=== PATIENT | male | born 1965 | race Caucasian/White ===

== ENCOUNTER 2017-02-03 05:42 | Inpatient (IN) | payer OTHER ==
--- NOTE | ~2017-02-03 | HP ---
History And Physical [place] [id number] [facility] [place]. [address] NAME: VLADISLAV HERNANDEZ JR : 67 STATUS : ADM IN [facility]#: [id number] AGE: 51 ADM/REG DATE : 02/03/17 MR#: [id number] REPORT SERV DATE: 02/03/17 DICTATED BY: GINGER MORSE DATE: 02/03/17 REPORT STATUS : Draft TRANSCRIBED BY: MODMelva DATE: 02/03/17 DATE OF ADMISSION: 02/03/2017 REASON FOR ADMISSION: Injection of oxycodone to his left hand. PRIMARY CARE DOCTOR: Unclear. HISTORY OF PRESENT ILLNESS: This is a 51-year-old male who has a known past medical history of a DVT, no longer the case. Only one episode of spontaneous pneumothorax as a child as well as having recent injection drug use, notably with heroin in the past one month for significant chronic pain, possibly in the low back as well as now recent use of injecting Roxicodone XR 30 mg a day. The patient denies any history of hypertension, hyperlipidemia, or diabetes. The patient apparently came in last night near 9 o'clock and injected in one of his veins of his left hand, superficial region as he still has a bounding radial pulse, Roxicodone that was liquified or attempted to be. As a result, the patient had increased swelling in his left hand. He has capillary refill about 3 seconds in his left digits. The patient denies any recent fevers or chills or nausea, vomiting, diarrhea, chest pain, chest pressure, or shortness of breath. The patient understands the risks of IV drug use including endocarditis was explained to he and his . The patient was seen by Vascular Surgery here, for which was noted pain all over, mottling, stated he had good proximal perfusion and flow. Ischemia appears to be more distal. Recommend calling hand surgeon, start IV heparin, pain control, and they signed off. REVIEW OF SYSTEMS: Done, see HPI. Otherwise, negative. PAST MEDICAL HISTORY: See above. PAST SURGICAL HISTORY: See above. ALLERGIES: NO KNOWN DRUG ALLERGIES. SOCIAL HISTORY: Smokes about two packs a day. Positive heroin IV drug use. Positive illicit use of Roxicodone. No alcohol use per the patient. FAMILY HISTORY: Early [place] in his father. HOME MEDICATIONS: See MAR. We will continue what is relevant. PHYSICAL EXAMINATION: VITAL SIGNS: He is currently 157 systolic from 169/100, pulse 72, respirations 16, and 99% on room air. History And Physical [address] [address] NAME: VLADISLAV HERNANDEZ JR : 67 STATUS : ADM IN [facility]#: [id number] AGE: 51 ADM/REG DATE : 02/03/17 MR#: [id number] REPORT SERV DATE: 02/03/17 DICTATED BY: GINGER MORSE DATE: 02/03/17 REPORT STATUS : Draft TRANSCRIBED BY: MODMelva DATE: 02/03/17 GENERAL: Guarded. HEENT: PERRLA. No scleral icterus. CARDIOVASCULAR: Regular rate and rhythm. No murmur. RESPIRATORY: Clear to auscultation bilaterally. No wheezes or crackles. ABDOMEN: Nontender, nondistended. Positive bowel sounds. EXTREMITIES: No edema. No ecchymosis except left hand positive swelling. Tenderness to palpation, even to light palpation. Perfusion of 3-second capillary refill of the digits, mottling. NEURO: GCS 15. A and O x4/4. PSYCH: Anxious. LABORATORY DATA: Labs are all pending except DOA is positive for opiates. ASSESSMENT: 1. Left hand digital ischemia. 2. IV drug use with Roxicodone last night. 3. Smoking history. 4. History of deep vein thrombosis. PLAN: We will go ahead and admit this patient. I will apply a calcium-channel millie, Procardia XL 30 mg at low dose, hold if systolic is less than 100; and then given topical nitroglycerin 2% apply about 0.25 inches per digit on left hand every 12 hours, hold for systolic less than 100; placed on IV heparin drip for VTE protocol. Need at least 2 peripheral IVs preferably, not on the left side. Given any possible superficial infection, I cannot fully evaluate for. Given confounding ischemia as well as lab work still pending, I will empirically place on doxycycline, ask for Ortho-Hand to evaluate the patient. We will get a CT of his left hand without contrast as I do not know his creatinine. See rest of my orders. All questions were answered. It took well over 60 minutes to do. WST/MODL Ginger Morse DO / [id number] CC: Arti Pop M.D.
--- NOTE | ~2017-02-03 | DS ---
Discharge Summary [facility] [address] [place] [place]. [address] NAME: VLADISLAV HERNANDEZ JR : 67 STATUS : DIS IN PAT#: [id number] AGE: 51 ADM/REG DATE : 02/03/17 MR#: [id number] REPORT SERV DATE: 02/08/17 DICTATED BY: STEPHANIE SANTOS DATE: 02/06/17 REPORT STATUS : Draft TRANSCRIBED BY: MODL DATE: 02/06/17 ADMISSION DATE: 02/03/2017 DISCHARGE DATE: 02/06/2017 PRINCIPAL DIAGNOSIS: Multiple finger ischemia due to drug injection mishap. SECONDARY DIAGNOSES: Heroin abuse, opioid dependence, chronic pain. HISTORY OF PRESENT ILLNESS: Please see Dr. Morse dictation of 02/03/2017. HOSPITAL COURSE: The patient admitted with finger tip ischemia after mishap while injecting heroin into his hand. He was seen by Vascular Surgery and actually had some removal of some necrotic tissue. The patient continued to have issues with pain. Due to his heroin dependence, he was not able to be given opiates besides the methadone was arranged, and followup with [facility]one Clinic was also arranged. He was released on 02/06/2017 in otherwise satisfactory condition. Diet as tolerated. Activity as tolerated. He was given a daily aspirin. One month supply of Xarelto was supplied in addition to the methadone, and his home dose of Wellbutrin. The patient has no primary care provider but will follow up with [facility]. Greater than 30 minutes were spent in care of this patient on discharge day and discharge planning. JONN/BENJAMIN Stephanie Santos M.D. / [id number] CC: Stephanie Santos M.D. [facility]
--- NOTE | ~2017-02-03 | CN ---
Consultation Report [facility] [address] [place]. [address] NAME: VLADISLAV HERNANDEZ JR : 67 STATUS : ADM IN PAT#: [id number] AGE: 51 ADM/REG DATE : 02/03/17 MR#: [id number] REPORT SERV DATE: 02/05/17 DICTATED BY: SOLOMON CHANDRA DATE: 02/05/17 REPORT STATUS : Draft TRANSCRIBED BY: BENJAMIN DATE: 02/05/17 PSYCHIATRIC CONSULTATION DATE OF CONSULTATION: 02/05/2017 I reviewed this patient's medical record. I discussed the patient's status with Dr. Morse. HISTORY OF PRESENT ILLNESS: He was admitted with a painful and vascularly compromised left hand and fingers, following intravenous injection of oxycodone. I was consulted concerning his drug abuse. PAST PSYCHIATRIC HISTORY: He gives a multiyear history of psychiatric treatment and substance abuse. He had one inpatient psychiatric admission to [facility] in [place], [place]. He was diagnosed with a bipolar disorder. He has a history of recurring depressions and mixed affective states. He has chronic insomnia. He was followed as an outpatient at [facility]. He was prescribed Seroquel, Tegretol, and other psychotropic agents. He stopped attending there about five months ago. SOCIAL HISTORY: He is . 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 He also stated that he is now on disability based on a diagnosis of bipolar disorder and chronic back pain. He smokes about 2 packs of cigarettes daily. MENTAL STATUS: He was cooperative in attitude. His mood was somewhat anxious and dysphoric. His affect was appropriate. His thinking was logical. He had no delusions. He had no hallucinations. He was oriented to time, place, and person. DIAGNOSES: 1. Opioid dependence. 2. Nicotine dependence. 3. Bipolar disorder, not otherwise specified. RECOMMENDATIONS: He said he planned to return to [facility] and re- enter their intensive outpatient program for substance dependence as well as restarting on a mood stabilizing medication regimen. He also plans to attend a pain management for his chronic back pain. I will not start him on any psychotropic medication. I will sign off. WILVER/BENJAMIN Solomon Chandra M.D. Consultation Report [address] [place]. [address] NAME: VLADISLAV HERNANDEZ JR : 67 STATUS : ADM IN PAT#: [id number] AGE: 51 ADM/REG DATE : 02/03/17 MR#: [id number] REPORT SERV DATE: 02/05/17 DICTATED BY: SOLOMON CHANDRA DATE: 02/05/17 REPORT STATUS : Draft TRANSCRIBED BY: MODL DATE: 02/05/17 / [id number] CC: Chris Morse DO
--- NOTE | ~2017-02-03 | CN ---
Consultation Report [facility] [address] [place]. [address] NAME: VLADISLAV HERNANDEZ JR : 67 STATUS : ADM IN PAT#: [id number] AGE: 51 ADM/REG DATE : 02/03/17 MR#: [id number] REPORT SERV DATE: 02/03/17 DICTATED BY: KATY MARLOW DATE: 02/03/17 REPORT STATUS : Draft TRANSCRIBED BY: MODMelva DATE: 02/03/17 DATE OF CONSULTATION: CHIEF COMPLAINT: Left hand pain. HISTORY OF PRESENT ILLNESS: This is a 51-year-old right-hand dominant, disabled white male, who has been IV drug abusing for about a year, injecting oxycodone in his left hand first web space yesterday. Last night, he woke up in severe pain and about 3 a.m., was noted to have bluish fingertips. He came to the emergency room. He does have a history of DVT, and he smokes two packs per day. ALLERGIES: NONE KNOWN. PAST SURGICAL HISTORY: None. MEDICAL PROBLEMS: History of DVT and pneumothorax. MEDICATIONS: None. SOCIAL AND FAMILY HISTORY: He is . Lives in [place]. Smokes two packs per day. Does not drink any alcohol. Positive history of IV drug abuse. REVIEW OF SYSTEMS: Negative for liver disease, lung disease, kidney disease, hypertension, diabetes. Positive for IV drug abuse and chronic back pain. PHYSICAL EXAMINATION: Shows a white male, in obvious pain. Multiple tattoos in bilateral upper extremities. Left hand first web space with some mild induration at the injection site, but does not appear to have infection appearance. He does have a positive radial pulse. Fingertips, index through small, are dusky with decreased capillary refill, but he has good range of motion of the fingers and the fingers are warm. IMPRESSION: Ischemia, left hand. PLAN: I do not see any relation to the injection site and to the hand ischemia. No compartment syndrome was present. There is a question whether this is Buerger disease related to smoking, but usually not an acute onset as such, or possible microemboli. Agree with admission, IV heparin, and pain medications. We will defer to Vascular Surgery if they feel angiogram is worth getting. We will follow up prognosis in question. At this point, I have no surgery that I can feel that can make this ischemia better. BS/MODL Consultation Report [facility] [address] [place] [place] [address] NAME: VLADISLAV HERNANDEZ JR : 67 STATUS : ADM IN PAT#: [id number] AGE: 51 ADM/REG DATE : 02/03/17 MR#: [id number] REPORT SERV DATE: 02/03/17 DICTATED BY: KATY MARLOW DATE: 02/03/17 REPORT STATUS : Draft TRANSCRIBED BY: BENJAMIN DATE: 02/03/17 Katy Marlow M.D. / [id number] CC: Arti Pop M.D.
[~2017-02-03 05:42] MED LIST: NO HOME MEDS
[2017-02-03 06:14] LABS: AMPHETAMINES (NOT ORD) NEG (NEG); BARBITURATES (NOT ORDERED NEG (NEG); BENZODIAZEPINES (NOT ORD) NEG (NEG); CANNABINOIDS (THC) NEG (NEG); COCAINE (NOT ORDERED) NEG (NEG); OPIATES POS (NEG); PHENCYCLIDINE(PCP) NEG (NEG); TRICYCLICS NEG (NEG)
[2017-02-03 08:21] LABS: BASOPHILS 0.2 %; BASOPHILS ABSOLUTE 0.02 10/3/uL (0.0-0.16); EOSINOPHILS 0.8 %; EOSINOPHILS ABSOLUTE 0.08 10/3/uL (0.0-0.53); HEMATOCRIT 37.2 % (40.0-51.0); HEMOGLOBIN 12.6 g/dL (13.6-17.8); IMMATURE GRANULOCYTES 0.2 %; IMMATURE GRANULOCYTES ABSOLUTE 0.02 10/3/uL (0.0-0.11); LYMPHOCYTES 17.5 %; LYMPHOCYTES ABSOLUTE 1.75 10/3/uL (0.67-4.30); MEAN CORPUS HGB CONC 33.9 g/dL (32.0-36.0); MEAN CORPUSCULAR HEMOGLOB 29.3 pg (26.0-34.0); MEAN CORPUSCULAR VOLUME 86.5 fL (80-100); MEAN PLATELET VOLUME 8.9 fL (9.2-13.0); MONOCYTES 5.9 %; MONOCYTES ABSOLUTE 0.59 10/3/uL (0.21-1.20); NEUTROPHILS 75.4 %; NEUTROPHILS ABSOLUTE 7.54 10/3/uL (2.02-8.40); PLATELET COUNT 325 10/3/uL (150-400); RBC DISTRIBUTION WIDTH 13.9 % (12.0-16.0)
[2017-02-03 08:23] LABS: MANUAL DIFF NO %
[2017-02-03 08:38] LABS: A/G RATIO 0.8 (0.7-1.9); ALBUMIN 3.4 G/DL (3.5-5.0); ALKALINE PHOSPHATASE 102 U/L (45-117); BUN (BLOOD UREA NITROGEN) 16 MG/DL (6-23); CALCIUM, SERUM 8.4 MG/DL (8.5-10.4); CHLORIDE, SERUM 107 MMOL/L (96-112); CO2 (CARBON DIOXIDE) 27 MMOL/L (24-34); CREATININE 0.85 MG/DL (0.70-1.30); GFR AFRICAN AMERICAN 118 ML/MIN (>=60); GFR NON AFRICAN AMERICAN 102 ML/MIN (>=60); GLOBULIN 4.3 G/DL (2.5-4.1); GLUCOSE, SERUM 142 MG/DL (60-99); POTASSIUM, SERUM 4.2 MMOL/L (3.5-5.3); SALICYLATE 4.3 MG/DL (-); SGOT(AST) 20 U/L (5-40); SGPT(ALT) 35 U/L (5-65); SODIUM, SERUM 140 MMOL/L (135-148); TOTAL BILIRUBIN 0.3 MG/DL (0-1.2); TOTAL PROTEIN 7.7 G/DL (6.0-8.5)
[2017-02-03 08:39] LABS: ACETAMINOPHEN LEVEL (TYLENOL) < 2.0 MCG/ML (10.0-20.0); ALCOHOL < 10 MG/DL (0)
[2017-02-03] MEDS ORDERED: WELLXL300 PO (09:25)
[2017-02-03 11:34] LABS: PHOSPHORUS, SERUM 2.4 MG/DL (2.5-4.5); TROPONIN I <0.02 NG/ML (<0.05); ULTRASENSITIVE TSH 0.389 MCIU/ML (0.358-3.740)
[2017-02-03 13:02] LABS: PROCALCITONIN < 0.05 ng/mL (<0.5)
[2017-02-04 09:45] LABS: BASOPHILS 0.1 %; BASOPHILS ABSOLUTE 0.01 10/3/uL (0.0-0.16); EOSINOPHILS 1.8 %; EOSINOPHILS ABSOLUTE 0.14 10/3/uL (0.0-0.53); HEMATOCRIT 37.4 % (40.0-51.0); HEMOGLOBIN 12.5 g/dL (13.6-17.8); IMMATURE GRANULOCYTES 0.3 %; IMMATURE GRANULOCYTES ABSOLUTE 0.02 10/3/uL (0.0-0.11); LYMPHOCYTES 25.7 %; LYMPHOCYTES ABSOLUTE 1.99 10/3/uL (0.67-4.30); MEAN CORPUS HGB CONC 33.4 g/dL (32.0-36.0); MEAN CORPUSCULAR HEMOGLOB 29.1 pg (26.0-34.0); MEAN PLATELET VOLUME 9.1 fL (9.2-13.0); MONOCYTES 7.2 %; MONOCYTES ABSOLUTE 0.56 10/3/uL (0.21-1.20); NEUTROPHILS 64.9 %; NEUTROPHILS ABSOLUTE 5.03 10/3/uL (2.02-8.40); PLATELET COUNT 289 10/3/uL (150-400); RBC DISTRIBUTION WIDTH 14.2 % (12.0-16.0); WHITE BLOOD CELLS 7.8 10/3/uL (4.5-10.5)
[2017-02-04 09:48] LABS: MANUAL DIFF NO %
[2017-02-04 10:00] LABS: BUN (BLOOD UREA NITROGEN) 10 MG/DL (6-23); CALCIUM, SERUM 8.4 MG/DL (8.5-10.4); CHLORIDE, SERUM 107 MMOL/L (96-112); CO2 (CARBON DIOXIDE) 27 MMOL/L (24-34); CREATININE 0.74 MG/DL (0.70-1.30); GFR AFRICAN AMERICAN 125 ML/MIN (>=60); GFR NON AFRICAN AMERICAN 108 ML/MIN (>=60); GLUCOSE, SERUM 168 MG/DL (60-99); PHOSPHORUS, SERUM 2.7 MG/DL (2.5-4.5); POTASSIUM, SERUM 4.5 MMOL/L (3.5-5.3); SODIUM, SERUM 138 MMOL/L (135-148)
[2017-02-05 06:13] LABS: BASOPHILS 0.3 %; BASOPHILS ABSOLUTE 0.02 10/3/uL (0.0-0.16); EOSINOPHILS 3.5 %; EOSINOPHILS ABSOLUTE 0.26 10/3/uL (0.0-0.53); HEMATOCRIT 38.6 % (40.0-51.0); HEMOGLOBIN 12.9 g/dL (13.6-17.8); IMMATURE GRANULOCYTES 0.1 %; IMMATURE GRANULOCYTES ABSOLUTE 0.01 10/3/uL (0.0-0.11); LYMPHOCYTES 29.9 %; LYMPHOCYTES ABSOLUTE 2.23 10/3/uL (0.67-4.30); MEAN CORPUS HGB CONC 33.4 g/dL (32.0-36.0); MEAN CORPUSCULAR HEMOGLOB 28.8 pg (26.0-34.0); MEAN CORPUSCULAR VOLUME 86.2 fL (80-100); MEAN PLATELET VOLUME 9.2 fL (9.2-13.0); MONOCYTES ABSOLUTE 0.52 10/3/uL (0.21-1.20); NEUTROPHILS 59.2 %; NEUTROPHILS ABSOLUTE 4.41 10/3/uL (2.02-8.40); PLATELET COUNT 324 10/3/uL (150-400); RBC DISTRIBUTION WIDTH 14.1 % (12.0-16.0); RED CELL COUNT 4.48 10/6/uL (4.7-6.1); WHITE BLOOD CELLS 7.5 10/3/uL (4.5-10.5)
[2017-02-05 06:14] LABS: MANUAL DIFF NO %
[2017-02-05 06:35] LABS: PHOSPHORUS, SERUM 3.8 MG/DL (2.5-4.5)
[2017-02-05 15:36] LABS: A/G RATIO 0.9 (0.7-1.9); ALBUMIN 3.5 G/DL (3.5-5.0); ALKALINE PHOSPHATASE 82 U/L (45-117); BUN (BLOOD UREA NITROGEN) 9 MG/DL (6-23); CALCIUM, SERUM 9.2 MG/DL (8.5-10.4); CHLORIDE, SERUM 108 MMOL/L (96-112); CO2 (CARBON DIOXIDE) 26 MMOL/L (24-34); CREATININE 0.71 MG/DL (0.70-1.30); GFR AFRICAN AMERICAN 127 ML/MIN (>=60); GFR NON AFRICAN AMERICAN 109 ML/MIN (>=60); GLOBULIN 3.9 G/DL (2.5-4.1); GLUCOSE, SERUM 100 MG/DL (60-99); POTASSIUM, SERUM 4.4 MMOL/L (3.5-5.3); SGOT(AST) 18 U/L (5-40); SGPT(ALT) 27 U/L (5-65); SODIUM, SERUM 140 MMOL/L (135-148); TOTAL BILIRUBIN 0.5 MG/DL (0-1.2); TOTAL PROTEIN 7.4 G/DL (6.0-8.5)
[2017-02-06 07:14] LABS: BASOPHILS 0.4 %; BASOPHILS ABSOLUTE 0.03 10/3/uL (0.0-0.16); EOSINOPHILS 3.3 %; EOSINOPHILS ABSOLUTE 0.27 10/3/uL (0.0-0.53); HEMATOCRIT 37.4 % (40.0-51.0); HEMOGLOBIN 12.5 g/dL (13.6-17.8); IMMATURE GRANULOCYTES 0.5 %; IMMATURE GRANULOCYTES ABSOLUTE 0.04 10/3/uL (0.0-0.11); LYMPHOCYTES 30.3 %; LYMPHOCYTES ABSOLUTE 2.46 10/3/uL (0.67-4.30); MEAN CORPUS HGB CONC 33.4 g/dL (32.0-36.0); MEAN CORPUSCULAR HEMOGLOB 28.9 pg (26.0-34.0); MEAN CORPUSCULAR VOLUME 86.4 fL (80-100); MONOCYTES 8.5 %; MONOCYTES ABSOLUTE 0.69 10/3/uL (0.21-1.20); NEUTROPHILS ABSOLUTE 4.62 10/3/uL (2.02-8.40); PLATELET COUNT 282 10/3/uL (150-400); RBC DISTRIBUTION WIDTH 14.1 % (12.0-16.0); RED CELL COUNT 4.33 10/6/uL (4.7-6.1); WHITE BLOOD CELLS 8.1 10/3/uL (4.5-10.5)
[2017-02-06 07:20] LABS: MANUAL DIFF NO %
[2017-02-06 07:22] LABS: CALCIUM, SERUM 8.8 MG/DL (8.5-10.4); CHLORIDE, SERUM 111 MMOL/L (96-112); CO2 (CARBON DIOXIDE) 26 MMOL/L (24-34); CREATININE 0.72 MG/DL (0.70-1.30); GFR AFRICAN AMERICAN 126 ML/MIN (>=60); GFR NON AFRICAN AMERICAN 109 ML/MIN (>=60); GLUCOSE, SERUM 102 MG/DL (60-99); PHOSPHORUS, SERUM 3.3 MG/DL (2.5-4.5); POTASSIUM, SERUM 4.6 MMOL/L (3.5-5.3); SODIUM, SERUM 143 MMOL/L (135-148)
[2017-02-06 07:23] LABS: BUN (BLOOD UREA NITROGEN) 13 MG/DL (6-23)
[2017-02-06] MEDS ORDERED: METHATAB10 PO (11:24)
[2017-02-06] MEDS ORDERED: ASA5GR PO (11:25)
[2017-02-06] MEDS ORDERED: VIBRATAB100 MG PO (11:26)
[2017-02-06] MEDS ORDERED: HABIT14 TOP (11:26)
[2017-02-06] MEDS ORDERED: XARELTO20 MG PO (11:27)
[2017-02-06] MEDS ORDERED: NXL3 PO (11:28)
[2017-02-06] MEDS ORDERED: NITROBID2 % TOP (11:30)
[2017-03-31] MEDS ORDERED: DOLOPHINE10 MG PO (12:22)
== END 2017-02-06 13:00 | disposition home or self-care (01) | DRG 918 ==
LOC: ER 05:42 → 2SO 08:59 → 1SO 02-05 12:03
PROVIDERS: Internal Medicine; Nurse Practitioner
PROC: B31J1ZZ Fluoroscopy of Left Upper Extremity Arteries using Low Osmolar Contrast (ICD-10-PCS; principal; 2017-02-05)
DX: T40.2X2A Poisoning by other opioids, intentional self-harm, initial encounter (principal); F11.20 Opioid dependence, uncomplicated; F31.9 Bipolar disorder, unspecified; I10 Essential (primary) hypertension; G89.29 Other chronic pain; M54.9 Dorsalgia, unspecified; S60.222A Contusion of left hand, initial encounter; I99.8 Other disorder of circulatory system; M79.89 Other specified soft tissue disorders; E11.9 Type 2 diabetes mellitus without complications; F14.10 Cocaine abuse, uncomplicated; F17.210 Nicotine dependence, cigarettes, uncomplicated; F51.04 Psychophysiologic insomnia; W46.0XXA Contact with hypodermic needle, initial encounter; Z86.718 Personal history of other venous thrombosis and embolism; Z79.899 Other long term (current) drug therapy
CPT/HCPCS: 36217; 73130-LT; 73200-LT; 75710; 80048; 80053; 80305; 80307; 82962; 83036; 83735; 84100; 84145; 84443; 84484; 85025; 87040; 93005; A9270-GY; C1769; C1894; J1170; J2405; J2930; Q9967

== ENCOUNTER 2017-02-12 06:12 | Emergency (ER) | payer OTHER ==
[~2017-02-12 06:12] MED LIST changes: +ASA5GR PO; +HABIT14 TOP; +METHATAB10 PO; +NITROBID2 % TOP; +NXL3 PO; +VIBRATAB100 MG PO; +WELLXL300 PO; +XARELTO20 MG PO
[2017-03-31] MEDS ORDERED: DOLOPHINE10 MG PO (12:22)
== END 2017-02-12 10:03 | disposition left against medical advice (07) ==
LOC: ER 06:12
DX: R19.03 Right lower quadrant abdominal swelling, mass and lump (principal); R10.31 Right lower quadrant pain; F31.9 Bipolar disorder, unspecified; Z86.718 Personal history of other venous thrombosis and embolism; Z88.6 Allergy status to analgesic agent; Z79.899 Other long term (current) drug therapy; Z79.82 Long term (current) use of aspirin
CPT/HCPCS: 99283

== ENCOUNTER 2017-03-07 12:50 | Inpatient (IN) | payer OTHER ==
--- NOTE | ~2017-03-07 | HP ---
History And Physical [place] [address] [facility] [place]. [address] NAME: VLADISLAV HERNANDEZ JR : 67 STATUS : ADM IN [facility]#: [id number] AGE: 51 ADM/REG DATE : 03/07/17 MR#: [id number] REPORT SERV DATE: 03/07/17 DICTATED BY: TEODORO LUU DATE: 03/07/17 REPORT STATUS : Draft TRANSCRIBED BY: MODL DATE: 03/07/17 DATE OF ADMISSION: 03/07/2017 HISTORY OF PRESENT ILLNESS: This is a 51-year-old male, who comes in for left arm pain. The patient has a history of IVDA and was recently admitted here for ischemic fingers, mainly in the left hand. The patient was injecting oxycodone at that time and was treated conservatively. He was then discharged with Wellbutrin, aspirin, doxycycline, methadone, nicotine patch, Procardia, nitroglycerin and was supposed to follow up with [facility]. However, the patient relapsed and two weeks ago, started injecting drugs again. Two days ago, he went to [facility] Room for bilateral arm pain and he was found to have abscesses on both forearms. They did an I and D and placed the patient on Bactrim and sent home. He comes back today with the right arm better, but the left arm worse. They did a CAT scan there and it shows a 2.6 x 3.5 x 4.6 abscess in the anteromedial aspect of the forearm adjacent to the distal ulnar metaphysis. They then called me for admit with the physical exam findings there that the patient was having a hard time moving his fingers of the left arm and making a fist and they would want the patient to be transferred so that they can see a hand surgeon. We got Dr. Marie to agree to consult, but they wanted me to admit the patient. The patient is now transferred here complaining of pain, and he said that all his medications he ran out. The methadone, he said, he ran out and never followed up. He is requesting something for pain right now. There was no note of any fever, chills, sweats, cough, shortness of breath, chest pains, palpitations, near syncopal or syncopal episode, urinary or bowel changes, and the rest of the 14-point review of systems is negative, except as above. PAST MEDICAL HISTORY: Includes DVT, spontaneous pneumothorax as a child, heroin use in the past, chronic back pain. ALLERGIES: HE HAS NO KNOWN DRUG ALLERGIES. MEDICATIONS: Include Wellbutrin, I am not even sure if he is taking that. SOCIAL HISTORY: The patient smokes about two packs a day. Denies alcohol. FAMILY HISTORY: Positive for early [place] and CAD in the father. PHYSICAL EXAMINATION: GENERAL: The patient is alert and oriented x3, not in cardiopulmonary distress. VITAL SIGNS: Include a saturation of 100% on room air, blood pressure of 165/90, temperature of 98.9, pulse rate of 81, respirations of 18. NECK: He has supple neck. No JVD or carotid bruit. No lymphadenopathy. HEENT: [place] conjunctivae. Anicteric sclerae. No pharyngeal erythema. He has a peripheral line in the external jugular of the right side. RESPIRATORY: Clear lungs. No rales, no wheezes. CARDIOVASCULAR: Regular rate and rhythm. No murmurs. ABDOMEN: Positive bowel sounds. Soft and nontender. No masses. EXTREMITIES: Fair pulses. No edema. History And Physical [address] [address] NAME: VLADISLAV HERNANDEZ JR : 67 STATUS : ADM IN [facility]#: [id number] AGE: 51 ADM/REG DATE : 03/07/17 MR#: [id number] REPORT SERV DATE: 03/07/17 DICTATED BY: TEODORO LUU DATE: 03/07/17 REPORT STATUS : Draft TRANSCRIBED BY: BENJAMIN DATE: 03/07/17 SKIN: Shows multiple tattoos in the upper extremities with an open wound on the right forearm with slight erythema, warmth, and tenderness. The left forearm shows an open wound in the extensor area with erythema and tenderness. There is an induration close to the wrist area in the medial side with severe tenderness, erythema, and warmth. NEURO: Nonlocalizing. LABORATORY DATA: Reveals white count of 13.4, H and H of 11.9 and 36.1 with an MCV of 86.8. Chemistry is within acceptable limits. CRP of 4.5. Lactate of 1.2. ASSESSMENT: 1. Left wrist/forearm abscess with recent I and D. 2. Intravenous drug abuse. 3. Bipolar disorder. 4. Tobacco abuse. 5. Normocytic anemia. PLAN: The patient unfortunately relapsed and started injecting drugs again. He now has an abscess. We will get a Hand Ortho to consult and place on vanco for now. Restart his Wellbutrin and get a Psych consult. Monitor CBC and iron studies. Place a nicotine patch. It will be difficult to control his pain, I would try with the previous methadone that he has been taking together with morphine as needed. This has been explained to the patient, and he agreed and understood the plan. NÉSTOR/BENJAMIN Teodoro Luu M.D. / [id number] CC: Teodoro Luu M.D.
--- NOTE | ~2017-03-07 | DS ---
Discharge Summary [facility] [address] [place]. [address] NAME: VLADISLAV HERNANDEZ JR : 67 STATUS : DIS IN PAT#: [id number] AGE: 51 ADM/REG DATE : 03/07/17 MR#: [id number] REPORT SERV DATE: 03/18/17 DICTATED BY: DATE: REPORT STATUS : Draft TRANSCRIBED BY: MODL DATE: 03/17/17 ADMISSION DATE: 03/07/2017 DISCHARGE DATE: 03/17/2017 The patient was admitted to the [facility]. ATTENDING: Timur Lin M.D. CONSULTANTS: 1. Dr. Marie of Orthopedics. 2. Dr. Solomon Weir of Psychiatry. DISCHARGE DIAGNOSES: 1. Bilateral forearm abscesses, due to IV drug use and recurrent injections. Cultures demonstrating Klebsiella, Pseudomonas, group D Enterococcus. Status post multiple incision and drainages this admission on 03/08/2017, 03/09/2017, 03/11/2017, 03/13/2017, and 03/15/2017. Status post Ancef and Zosyn in the hospital, with placement of vancomycin and gentamicin antibiotic beads. To be discharged on an additional 10 days of Augmentin for susceptibilities. 2. History of a lower extremity deep venous thrombosis - One and half years ago. Provoked. No further need for anticoagulation. 3. History of opiate addiction. 4. Tobacco dependence. 5. Chronic constipation. 6. Hypertension - Initiated on lisinopril. 7. Bipolar disorder. IMAGIN. Included plain films of the left hand and left forearm on 03/07/2017, showing irregular soft tissue prominence with collection of gas or air in the soft tissues medial to the distal ulna. No focal osseous abnormality. 2. Portable chest x-ray, 03/11/2017, after central line placement shows right IJ catheter with tip overlying the SVC and no pneumothorax. Interstitial edema with mild left basilar atelectasis or consolidation and small left effusion. PERTINENT LABS: The patient's creatinine was normal throughout the admission at 0.7 to 0.8. White blood cell count at admission was 10.9, 6.8 at discharge. Hemoglobin values ranged from 10 to 12, with iron studies showing anemia of chronic inflammation. Platelet count was normal. INR normal. The patient refused blood cultures. The last growth on wound culture is Pseudomonas from the right forearm on 03/13/2017. More significant culture data from 03/11/2017, demonstrating Pseudomonas, Klebsiella, and enterococcus. BRIEF HISTORY: For full details, please see the previously dictated history of present illness by Dr. Timur Lin. This is a 51-year-old white male with known history of IV drug abuse, several admissions this year for complications thereof, including abscesses and ischemic digits. The patient was found to have abscesses on bilateral forearms, and Discharge Summary [address] [address] NAME: VLADISLAV HERNANDEZ JR : 67 STATUS : DIS IN PAT#: [id number] AGE: 51 ADM/REG DATE : 03/07/17 MR#: [id number] REPORT SERV DATE: 03/18/17 DICTATED BY: DATE: REPORT STATUS : Draft TRANSCRIBED BY: BENJAMIN DATE: 03/17/17 initially sought care at the [facility] Emergency Department. He underwent incision and drainage, was placed on Bactrim and sent home. His symptoms progressed despite that and a CAT scan at [facility] on repeat ER evaluation showed a 2.6 x 3.5 x 4.6 abscess in the anteromedial aspect of the left forearm. Then, the patient was referred to [facility] for admission and to see a hand surgeon. HOSPITAL COURSE: For full details, please reference interim discharge summary by Dr. Timur Lin for dates of service, 03/07/2017 through 03/12/2017. The patient was started on vancomycin and consultation was obtained from Dr. Marie. Initial incision and drainage was on 03/07/2017, with repeat on 03/09/2017. Cultures from those were positive for E. coli and Klebsiella, and the patient was placed on Ancef. The patient had subsequent I and Ds on 03/11/2017, 03/13/2017, and 03/15/2017. Culture from 03/11/2017 was positive for Pseudomonas, Klebsiella, and Enterobacter. Antibiotic subsequently was changed to Zosyn. The patient underwent his final incision and drainage on 03/15/2017, with placement of antibiotic beads (vancomycin and gentamicin). Cultures from 03/15/2017, incision and drainage are not growing any bacteria at the time of dictation and the patient was felt fit for discharge to home with additional oral antibiotics and to follow up closely with Dr. Marie. Compliance with his soft cast has been a challenge for the patient in the past. He is explicitly instructed to leave his bilateral soft cast in place, to not get them wet or dirty, and to not attempt to remove them himself. His followup appointment is with Dr. Marie on 03/26/2017, at the [place] location at 7:45 a.m. The patient is also being referred to a primary care provider and states that he intends to follow up with Pain Management and will find his own physician. He is being discharged with a small supply of Percocet, psychiatric medications, antibiotics, and lisinopril for blood pressure control. Case Management is assisting with the cost of some of his medications. He refused methadone on this discharge. DISCHARGE MEDICATIONS: 1. Wellbutrin 300 mg p.o. daily. 2. Augmentin 875/125 mg p.o. twice a day for 10 days. 3. Lisinopril 5 mg p.o. daily. 4. Seroquel 100 mg p.o. at bedtime. 5. Percocet 10/325 mg one tablet p.o. every six hours as needed - 60 tablets dispensed with no refills. 35 minutes were spent in completion of the discharge. DICTATED BY: Fer Fu/BENJAMIN Discharge Summary [address] [address] NAME: VLADISLAV HERNANDEZ JR : 67 STATUS : DIS IN PAT#: [id number] AGE: 51 ADM/REG DATE : 03/07/17 MR#: [id number] REPORT SERV DATE: 03/18/17 DICTATED BY: DATE: REPORT STATUS : Draft TRANSCRIBED BY: BENJAMIN DATE: 03/17/17 Ras Farah M.D. / [id number] CC: Fer Fu M.D.
--- NOTE | ~2017-03-07 | IDS ---
Interim Discharge Summary [facility] [address] [place]. [address] NAME: VLADISLAV HERNANDEZ JR : 67 STATUS : ADM IN [facility]#: [id number] AGE: 51 ADM/REG DATE : 03/07/17 MR#: [id number] REPORT SERV DATE: 03/11/17 DICTATED BY: TEODORO LUU DATE: 03/11/17 REPORT STATUS : Draft TRANSCRIBED BY: MODL DATE: 03/11/17 ADMISSION DATE: 03/07/2017 DISCHARGE DATE: This is a 51-year-old male with interim diagnoses of: 1. Bilateral forearm abscess, status post I and D, Escherichia coli and Klebsiella. 2. Intravenous drug abuse. 3. Normocytic anemia. 4. Tobacco abuse. 5. Bipolar disorder. CONSULTING PHYSICIANS: Dr. Marie for Orthopedic Surgery and Dr. Weir for Psychiatry and Dr. Weir signed off. DIAGNOSTIC EXAMS: Left forearm x-ray showing no evidence of acute left hand abnormality, irregular soft tissue prominence with a collection of gas or air within soft tissues medial to the distal ulna. No focal osseous abnormality is identified. Chest x-ray shows right internal jugular catheter with tip right overlying the SVC. No pneumothorax. There is a loop made involving the catheter proximally at the base of the right neck. It is not clear. This is internal or external to the patient. Interstitial edema with mild left basilar atelectasis or consolidation and small left effusion. HOSPITAL COURSE: Please refer to the H and P done by myself dated on 03/07/2017. Briefly, this is a 51-year-old male who comes in for left arm greater than the right arm pain. The patient has a history of IVDA since he was 21 years old. He has been in and out of remission, but he goes back to doing IVDA. The patient was recently here for ischemic fingers mainly the left hand and he was discharged with Wellbutrin, aspirin, doxycycline, methadone, nicotine patch, Procardia, and nitroglycerin. He is supposed to follow up with [facility] and also the methadone clinic; however, the patient did not follow up, relapsed in two weeks prior to admission, started injecting drugs again. Two days prior to admission, he went to [facility] for bilateral arm pain, and he was found to have abscesses on both forearms. They did an I and D on both, gave the patient Bactrim, and sent home. The patient went back to [facility] with the right arm better, but the left arm is worse. They did a CAT scan, and it showed 2.6 x 3.5 x 4.6, abscess in the anteromedial aspect of the forearm, adjacent to the distal ulnar metaphysis. The patient was then transferred here and we started the patient on vancomycin. The patient had gotten a consultation with Dr. Marie and he did an I and D on him on 03/07/2017, a repeat one in 03/09/2017 for the left one, and cultures have turned out to be positive for E coli and Klebsiella, and the patient was switched to Ancef. Later on, the patient started having increased pain in the right, and today, he underwent more I and D on the left and also for the right this time. The patient now has dressings on both upper extremities and the plan is for more debridement two days from now. Meanwhile, the patient has been complaining of pain as he was on methadone on discharge. I started him back on methadone and with morphine is for breakthrough. He continued having this pain, so I increased the methadone to 20 mg twice a day for now with morphine for breakthrough. He is a difficult Interim Discharge Summary [address] [address] NAME: VLADISLAV HERNANDEZ JR : 67 STATUS : ADM IN [facility]#: [id number] AGE: 51 ADM/REG DATE : 03/07/17 MR#: [id number] REPORT SERV DATE: 03/11/17 DICTATED BY: TEODORO LUU DATE: 03/11/17 REPORT STATUS : Draft TRANSCRIBED BY: MODL DATE: 03/11/17 stick and we are having a hard time getting blood from the patient. Unfortunately, my orders for blood cultures were never done. The patient will be treated according to the wound cultures. Meanwhile, we are trying to avoid blood drawing as he is a difficult stick and now has dressings on both upper extremities. However, we will need to monitor his electrolytes and CBC as he is also has normocytic anemia. I have discussed it with him and also with the mom that he has to do something with regard to his addiction and it is not feasible for him to continue living his life this way. He said that he is done with doing drugs, but according to the mom, he kept on being relapsed and he has a who is also a drug user. We got Dr. Weir involve and he mentioned to continue the Wellbutrin, to restart the Seroquel, and he signed off. Case management is working for primary care and possible Methadone Clinic. Partner of [facility] will be following up the patient starting tomorrow morning. NÉSTOR/BENJAMIN Teodoro Luu M.D. / [id number] CC: Teodoro Luu M.D. NO PCP
--- NOTE | ~2017-03-07 | CN ---
Consultation Report [facility] [address] [place]. [address] NAME: VLADISLAV HERNANDEZ JR : 67 STATUS : ADM IN PAT#: [id number] AGE: 51 ADM/REG DATE : 03/07/17 MR#: [id number] REPORT SERV DATE: 03/08/17 DICTATED BY: SOLOMON CHANDRA DATE: 03/08/17 REPORT STATUS : Draft TRANSCRIBED BY: MODL DATE: 03/08/17 PSYCHIATRIC CONSULTATION DATE OF CONSULTATION: 03/08/2017 I reviewed this patient's current and old medical records. I discussed the patient's status with Dr. Lin, who is the hospitalist. HISTORY OF PRESENT ILLNESS: He was admitted with an abscess of his left forearm which was caused by his self injecting opioids. PAST PSYCHIATRIC HISTORY: I previously saw him in consultation on 02/05/2017, when he was admitted with vascular issues to his left hand, again caused by self injecting oxycodone. He reports that he was diagnosed with bipolar disorder in the past when he was admitted to [facility]. He has a multiyear history of mood issues and drug abuse. He described chronic insomnia. In the past, he was prescribed Tegretol and Seroquel. He stopped taking these medications some months ago when he stopped attending the mental health clinic which was [facility]. He is currently taking Wellbutrin XL 300 mg daily. SOCIAL HISTORY: He is . He reports that he has two children, ages, 8 years old and 28 years old. 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 FAMILY HISTORY: There are multiple members with mood and substance abuse disorders. MENTAL STATUS: He had tremor of his lower lip. His mood was anxious and somewhat dysphoric. His affect was appropriate. His thinking was logical. He had no delusions. He had no hallucinations. He was oriented to time, place, and person. DIAGNOSES: 1. Opioid dependence. 2. Nicotine dependence. 3. Mood disorder, not otherwise specified. RECOMMENDATIONS: He again promises to seek followup outpatient care at [facility]. He knows that he can attend their intensive outpatient program which is focused on substance abuse issues. He seemed to be ambivalent about his opioid dependence, but he agreed to a gradual taper off the opioids. We will continue with his Wellbutrin and I will add Seroquel 100 mg p.o. at bedtime. I will sign off. DK/MODL Consultation Report [place] [id number] [place]. [address] NAME: VLADISLAV HERNANDEZ : 67 STATUS : ADM IN PAT#: [id number] AGE: 51 ADM/REG DATE : 03/07/17 MR#: [id number] REPORT SERV DATE: 03/08/17 DICTATED BY: SOLOMON CHANDRA DATE: 03/08/17 REPORT STATUS : Draft TRANSCRIBED BY: BENJAMIN DATE: 03/08/17 Solomon Chandra M.D. / [id number] CC: Timur Lin M.D.
--- NOTE | ~2017-03-07 | OP ---
Record Of Operation [facility] [address] [place]. [address] NAME: VLADISLAV HERNANDEZ JR : 67 STATUS : ADM IN PAT#: [id number] AGE: 51 ADM/REG DATE : 03/07/17 MR#: [id number] REPORT SERV DATE: 03/13/17 DICTATED BY: NANY GIORDANO DATE: 03/13/17 REPORT STATUS : Draft TRANSCRIBED BY: MODMelva DATE: 03/13/17 DATE OF PROCEDURE: 03/13/2017 PREOPERATIVE DIAGNOSIS: Bilateral forearm multiple abscesses (enterococcus, E coli, and Klebsiella) from IV drug abuse. POSTOPERATIVE DIAGNOSIS: Bilateral forearm multiple abscesses (enterococcus, E coli, and Klebsiella) from IV drug abuse. PROCEDURES: 1. Left forearm repeat cultures, irrigation, debridement, and closure over antibiotic beads (gentamicin and vancomycin beads) x3. 2. Right forearm repeat cultures, debridement, irrigation, and wound closure over antibiotic beads x2 abscesses. DRY FINISHER: Jackie. ANESTHESIA: General. ESTIMATED BLOOD LOSS: 30 mL. IV FLUIDS: 600 crystalloid. COMPLICATIONS: None. DISPOSITION: Patient tolerated the procedure well and was brought to recovery room in stable condition. PROCEDURE NOTE: The patient was brought to the operating room and placed in supine position. After general anesthesia was administered, pneumatic tourniquets were placed over both proximal arms and both upper extremity dressings were removed. Both upper extremities distal to the tourniquet were then prepped and draped in the usual sterile manner. Surgical time-out was performed and all were in agreement. Each limb was eventually exsanguinated with an Esmarch and the tourniquet was inflated. Sutures were removed from each of the wounds and cultures were taken. The wounds were inspected and noted to be quite clean. The edges of several wounds had to be debrided with pickups and scissors, and afterwards, a total of 6 L of normal saline was used to irrigate both upper extremities. After the left upper extremity was addressed and each of the three abscesses were closed over antibiotic beads, the right side was done in a similar manner using the one known abscess and one potential abscess. This potential abscess was explored by taking a 15-blade scalpel and making a 3 cm incision overlying the area, but there was no pus emanating from the area. Nonetheless, this was treated in a similar manner as the other abscesses with irrigation, antibiotic bead placement, and direct wound closure. All the other wounds had required some degree of debridement with pickups and scissors at the skin edges. Afterwards, the wounds were dressed and a volar splint was placed on the left side, but not on the right. Tourniquets were eventually released and the patient was then taken out of general Record Of Operation [address] [address] NAME: VLADISLAV HERNANDEZ JR : 67 STATUS : ADM IN [facility]#: [id number] AGE: 51 ADM/REG DATE : 03/07/17 MR#: [id number] REPORT SERV DATE: 03/13/17 DICTATED BY: NANY GIORDANO DATE: 03/13/17 REPORT STATUS : Draft TRANSCRIBED BY: BENJAMIN DATE: 03/13/17 anesthesia and brought to recovery room in stable condition. JOYA/BENJAMIN Nany Giordano M.D. / [id number] CC: Ras Farah M.D.
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
--- NOTE | ~2017-03-07 | OP ---
Record Of [facility] [address] [place]. [address] NAME: VLADISLAV HERNANDEZ JR : 67 STATUS : ADM IN [facility]#: [id number] AGE: 51 ADM/REG DATE : 03/07/17 MR#: [id number] REPORT SERV DATE: 03/11/17 DICTATED BY: NANY GIORDANO DATE: 03/11/17 REPORT STATUS : Draft TRANSCRIBED BY: MODL DATE: 03/11/17 DATE OF PROCEDURE: 03/11/2017 PREOPERATIVE DIAGNOSES: A 51-year-old male with intravenous drug abuse resulting in bilateral forearm abscesses, status post previous left forearm I and D of multi organism abscesses (Klebsiella, E coli, and Enterococcus faecalis) with Vac-Pac placement, and recent worsening right ulnar forearm abscess. POSTOPERATIVE DIAGNOSES: A 51-year-old male with intravenous drug abuse resulting in bilateral forearm abscesses, status post previous left forearm I and D of multi organism abscesses (Klebsiella, E coli, and Enterococcus faecalis) with Vac-Pac placement, and recent worsening right ulnar forearm abscess. PROCEDURES: Left forearm: 1. Repeat cultures. 2. Repeat irrigation and debridement. 3. Wound closure over antibiotic beads using 1 g of vancomycin and 240 mg of gentamicin. Right forearm abscess: 1. Incision and drainage. 2. Cultures. 3. Debridement of soft tissue with necrotic subcutaneous tissue using rongeur. 4. Vac-Pac placement. PHYSICIAN: Nany Giordano M.D. FAMILY CONSUMER SCIENCE FCS TEACHER: Ann-Marie Marlow. ANESTHESIA: General. ESTIMATED BLOOD LOSS: 10 mL. IV FLUIDS: 1200 crystalloid. CULTURES: Three sets. Two sets from the left forearm to include the distal ulnar abscess and the volar abscess (proximal ulnar abscess cultures not taken) and right ulnar forearm. COMPLICATIONS: None. DISPOSITION: The patient tolerated the procedure well and was brought to recovery room in stable condition. CLINICAL NOTE: The patient was seen in the preop holding area and review of the patient's symptoms was carried out. The patient complained of worsening right ulnar forearm pain and swelling in keeping with abscess formation. The patient admits to placing a needle to the right forearm, but lately the pain on the right forearm has become more intense. Physical exam revealed evidence of a similar abscess, but not as big as seen on the left side. The Record Of [facility] [address] [place] [address] NAME: VLADISLAV HERNANDEZ JR : 67 STATUS : ADM IN PAT#: [id number] AGE: 51 ADM/REG DATE : 03/07/17 MR#: [id number] REPORT SERV DATE: 03/11/17 DICTATED BY: NANY GIORDANO DATE: 03/11/17 REPORT STATUS : Draft TRANSCRIBED BY: BENJAMIN DATE: 03/11/17 need for surgical irrigation debridement and Vac-Pac placement was discussed with the patient and he was very much in favor of proceeding with surgery on the right side as well as his left side. PROCEDURE NOTE: The patient was brought to the operating room and placed in a supine position. After general anesthesia was administered, pneumatic tourniquets were placed on both proximal upper extremity arm area and superficial dressings were taken off on the left forearm and an Esmarch was used to exsanguinate the extremity and tourniquet was inflated. It was inflated on the left side. The occlusive dressing was removed, but the Vac-Pac sponges were kept in place. The left upper extremity and then right upper extremity were prepped and draped in the usual sterile manner. A surgical timeout was performed and all were in agreement. The three separate sponges from the three separate wounds on the left forearm were removed. The more proximal ulnar incision appeared very clean and only needed a small amount of debridement with the rongeur of the edges. The volar and distal wounds again looked very good and little debridement was necessary. Cultures were taken from the volar and distal wounds and afterwards all three wounds were irrigated with a total of 3 L of normal saline via pulse lavage. The wounds were then dried, inspected again, and no further debridement was deemed necessary. Antibiotic beads were made using 1 g of vancomycin and 250 mg of gentamicin. These were then inserted into the three separate wounds and the wounds were then closed with Prolene suture. A sterile dressing and a splint were later applied. The right forearm was elevated for five minutes and then gentle compression was applied to the forearm around the abscess and the tourniquet was inflated. A 15-blade scalpel was used to make an 8 cm longitudinal incision overlying the abscess on the ulnar forearm. A rongeur was used to remove necrotic tissue and cultures were taken and sent to Microbiology. The wound was then irrigated with 3 L of normal saline via pulse lavage. A Vac-Pack sponge was then used to fill in the subcutaneous space, site of the abscess, and after sitting the sponge to its proper dimensions of the wound, the edges of the wound were closed with 0 Prolene allowing the central portion to be exposed. An occlusive dressing was applied and the connector was then applied to the sponge. The connector was then connected to the Vac- Pack suction and this was put on. The tourniquet was released and a sterile dressing and a splint was also applied to the right upper extremity. The patient was then ready to be taken out of general anesthesia having tolerated the procedure well. JOYA/BENJAMIN Nany Giordano M.D. Record Of Operation [address] [address] NAME: VLADISLAV HERNANDEZ : 67 STATUS : ADM IN [facility]#: [id number] AGE: 51 ADM/REG DATE : 03/07/17 MR#: [id number] REPORT SERV DATE: 03/11/17 DICTATED BY: NANY GIORDANO DATE: 03/11/17 REPORT STATUS : Draft TRANSCRIBED BY: BENJAMIN DATE: 03/11/17 / [id number] CC: Timur Lin M.D.
--- NOTE | ~2017-03-07 | OP ---
Record Of [address] [place]. [address] NAME: VLADISLAV HERNANDEZ JR : 67 STATUS : ADM IN [facility]#: [id number] AGE: 51 ADM/REG DATE : 03/07/17 MR#: [id number] REPORT SERV DATE: 03/15/17 DICTATED BY: NANY GIORDANO DATE: 03/15/17 REPORT STATUS : Draft TRANSCRIBED BY: BENJAMIN DATE: 03/15/17 DATE OF PROCEDURE: 03/07/2017 PREOPERATIVE DIAGNOSIS: Right upper extremity, multi-organism abscesses, status post multiple I and D's. PROCEDURE: Right upper extremity abscesses: 1. Repeat cultures. 2. Repeat irrigation debridements. 3. Antibiotic bead placement. PHYSICIAN: Nany Giordano M.D. NURSERYPERSON: Briseyda Messina. ANESTHESIA: General. ESTIMATED BLOOD LOSS: Less than 1 mL. COMPLICATIONS: None. DISPOSITION: The patient tolerated the procedure well and was brought to recovery room in stable condition. PROCEDURE NOTE: The patient was brought to the operating room and placed in a supine position. After general anesthesia was administered, a pneumatic tourniquet was placed around the right proximal arm, and the right upper extremity distal to the tourniquet was prepped and draped in the usual sterile manner. A surgical time-out was performed and all were in agreement. Afterwards, the Esmarch was used to exsanguinate the extremity and tourniquet was inflated. Sutures were removed. Wounds were inspected. Cultures taken and the wounds were then irrigated and two abscesses were irrigated with a total of 3 L of normal saline via pulse lavage. Afterwards, a rongeur was used to remove any nonviable tissue and the edges were then closed after packing the area with antibiotic beads made with vancomycin powder and gentamicin. A sterile dressing was applied and the tourniquet was released. The patient was ready to be brought to recovery room having tolerated the procedure well. JOYA/BENJAMIN Nany Giordano M.D. / [id number] Record Of [address] [place]. [address] NAME: VLADISLAV HERNANDEZ JR : 67 STATUS : ADM IN PAT#: [id number] AGE: 51 ADM/REG DATE : 03/07/17 MR#: [id number] REPORT SERV DATE: 03/15/17 DICTATED BY: NANY GIORDANO DATE: 03/15/17 REPORT STATUS : Draft TRANSCRIBED BY: MODL DATE: 03/15/17 CC: Ras Farah M.D.
--- NOTE | ~2017-03-07 | OP ---
Record Of Operation [facility] [address] [place]. [address] NAME: VLADISLAV HERNANDEZ JR : 67 STATUS : ADM IN PAT#: [id number] AGE: 51 ADM/REG DATE : 03/07/17 MR#: [id number] REPORT SERV DATE: 03/08/17 DICTATED BY: NANY GIORDANO DATE: 03/07/17 REPORT STATUS : Draft TRANSCRIBED BY: MODL DATE: 03/07/17 DATE OF PROCEDURE: 03/07/2017 PREOPERATIVE DIAGNOSIS: Left forearm multiple abscesses from IV drug abuse. POSTOPERATIVE DIAGNOSIS: Left forearm multiple abscesses from IV drug abuse. PROCEDURES: Left forearm: 1. Multiple abscesses. a. Cultures. 2. Irrigation and debridement. 3. Vac-Pac placement. PHYSICIAN: Nany Giordano M.D. FILM HISTORIAN: Rome Schroeder. ANESTHESIA: General. ESTIMATED BLOOD LOSS: 100 mL. COMPLICATIONS: None. DISPOSITION: Patient tolerated the procedure well and was ready to be taken out of general anesthesia. PROCEDURE NOTE: Patient was brought to the operating room and placed in supine position. After general anesthesia was administered, a pneumatic tourniquet was placed around the left proximal arm and left upper extremity distal to the tourniquet was prepped and draped in the usual sterile manner. A surgical time-out was performed and all were in agreement and the arm was then elevated for five minutes and the tourniquet was inflated. A 10 blade and 15 blade scalpels were used to make incisions about the skin on the ulnar forearm overlying the areas of abscess. The more proximal area did not reveal significant pus, but the more distal one did. Cultures were taken and an additional volar abscess was identified and this was incised. Most of the abscesses were subcutaneous, but throughout the exploration of the wounds it was black ink scattered throughout the skin and lymphatic system from the multiple tattoos that the patient has on his left forearm. After the cultures were taken, the wounds were irrigated with copious amounts of normal saline via pulse lavage. The tourniquet was released. All bleeding was in the superficial skin area and no deep vessels were identified. Once again, it was very difficult to determine the exact anatomy because of the multiple black streaks throughout the subcutaneous area. After five minutes in applying pressure and cauterizing the most superficial skin bleeding sites, the Esmarch was used to exsanguinate the extremity again and the tourniquet was inflated. Continuation of irrigation was carried out and then the wounds were dried. A Vac-Pac sponge was placed in proximal and distal wounds and a connecting sponge was placed after occlusive Record Of Operation [facility] [address] [place]. [address] NAME: VLADISLAV HERNANDEZ JR : 67 STATUS : ADM IN PAT#: [id number] AGE: 51 ADM/REG DATE : 03/07/17 MR#: [id number] REPORT SERV DATE: 03/08/17 DICTATED BY: NANY GIORDANO DATE: 03/07/17 REPORT STATUS : Draft TRANSCRIBED BY: BENJAMIN DATE: 03/07/17 dressing was applied. An additional occlusive dressing was applied and the Vac-Pac was connected to its suction device and found to have good suction without a leak. A sterile dressing and a sugar-tong splint was applied after the tourniquet was released. The patient was ready to be taken out of general anesthesia to be brought to recovery room having tolerated procedure well. JOYA/BENJAMIN Nany Giordano M.D. / [id number] CC: Timur Lin M.D.
--- NOTE | ~2017-03-07 | OP ---
Record Of Operation [facility] [address] [place]. [address] NAME: VLADISLAV HERNANDEZ JR : 67 STATUS : ADM IN PAT#: [id number] AGE: 51 ADM/REG DATE : 03/07/17 MR#: [id number] REPORT SERV DATE: 03/09/17 DICTATED BY: NANY GIORDANO DATE: 03/09/17 REPORT STATUS : Draft TRANSCRIBED BY: BENJAMIN DATE: 03/09/17 DATE OF PROCEDURE: 03/09/2017 PREOPERATIVE DIAGNOSIS: Multi organism (Klebsiella and E coli) abscesses/infection of left forearm secondary to IV drug abuse with history of recent irrigation, debridement, and Vac- Pac placement, 03/07/2017. PROCEDURES: Left forearm, 1. Repeat cultures. 2. Repeat irrigation and debridement of soft tissue. 3. Vac-Pac placement. ALUMNI RELATIONS COORDINATOR: Ann-Marie Marlow. ANESTHESIA: General. ESTIMATED BLOOD LOSS: Less than 5 mL. IV FLUIDS: 700 mL crystalloid. SPECIMENS: Cultures x2 from distal forearm wound. DISPOSITION: The patient tolerated the procedure well and was brought to the recovery room in stable condition. PROCEDURE NOTE: The patient was brought to the operating room and placed in supine position. After general anesthesia was administered, the pneumatic tourniquet was placed around the left proximal arm and the previous splint and dressings were removed. The sponges from Vac- Pac were kept inside the wound and the left upper extremity was prepped and draped in the usual sterile manner. A surgical time-out was performed, and all were in agreement. An Esmarch was used to exsanguinate the extremity and tourniquet was inflated. Sponges were removed, cultures were taken, wounds were inspected, and small debridements were carried out in each wound with the help of a rongeur, 15 blade, and pickup, and after adequate debridement of the edges of the nonviable tissue and the subcutaneous tissues of each wound, the wounds were then irrigated with a total of 6 L of normal saline via pulse lavage. Afterwards, the Vac-Pac sponges were placed back into position and an occlusive dressing was applied, and the patient tourniquet was released. A sterile dressing and a sugar-tong splint was applied, and the patient was ready to be taken out of general anesthesia having tolerated the procedure quite well. JOYA/BENJAMIN Nany Record Of Operation [facility] [address] [address] NAME: VLADISLAV HERNANDEZ JR : 67 STATUS : ADM IN PAT#: [id number] AGE: 51 ADM/REG DATE : 03/07/17 MR#: [id number] REPORT SERV DATE: 03/09/17 DICTATED BY: NANY GIORDANO DATE: 03/09/17 REPORT STATUS : Draft TRANSCRIBED BY: MODL DATE: 03/09/17 Fer Giordano / [id number] CC: Timur Lin M.D.
[2017-03-07 15:30] LABS: BUN (BLOOD UREA NITROGEN) 14 MG/DL (6-23); CALCIUM, SERUM 8.5 MG/DL (8.5-10.4); CHLORIDE, SERUM 112 MMOL/L (96-112); CREATININE 0.85 MG/DL (0.70-1.30); GFR AFRICAN AMERICAN 118 ML/MIN (>=60); GFR NON AFRICAN AMERICAN 102 ML/MIN (>=60); GLUCOSE, SERUM 96 MG/DL (60-99); SODIUM, SERUM 139 MMOL/L (135-148)
[2017-03-07 15:33] LABS: CO2 (CARBON DIOXIDE) 20 MMOL/L (24-34); POTASSIUM, SERUM 5.1 MMOL/L (3.5-5.3)
[2017-03-08] MEDS ORDERED: ADVIL PO (12:42)
[2017-03-08] MEDS ORDERED: XARELTO20 MG PO (12:49)
[2017-03-08] MEDS ORDERED: BACDS PO (12:49)
[2017-03-08 16:13] LABS: BASOPHILS 0.3 %; BASOPHILS ABSOLUTE 0.03 10/3/uL (0.0-0.16); EOSINOPHILS 2.4 %; EOSINOPHILS ABSOLUTE 0.26 10/3/uL (0.0-0.53); HEMOGLOBIN 10.6 g/dL (13.6-17.8); IMMATURE GRANULOCYTES 0.3 %; IMMATURE GRANULOCYTES ABSOLUTE 0.03 10/3/uL (0.0-0.11); LYMPHOCYTES 22.6 %; LYMPHOCYTES ABSOLUTE 2.46 10/3/uL (0.67-4.30); MEAN CORPUSCULAR VOLUME 87.7 fL (80-100); MEAN PLATELET VOLUME 8.5 fL (9.2-13.0); MONOCYTES 9.5 %; MONOCYTES ABSOLUTE 1.03 10/3/uL (0.21-1.20); NEUTROPHILS 64.9 %; NEUTROPHILS ABSOLUTE 7.07 10/3/uL (2.02-8.40); PLATELET COUNT 276 10/3/uL (150-400); RBC DISTRIBUTION WIDTH 13.6 % (12.0-16.0); RED CELL COUNT 3.66 10/6/uL (4.7-6.1); WHITE BLOOD CELLS 10.9 10/3/uL (4.5-10.5)
[2017-03-08 16:15] LABS: HEMATOCRIT 32.1 % (40.0-51.0); MANUAL DIFF NO %
[2017-03-08 16:35] LABS: BUN (BLOOD UREA NITROGEN) 11 MG/DL (6-23); CALCIUM, SERUM 7.7 MG/DL (8.5-10.4); CHLORIDE, SERUM 107 MMOL/L (96-112); CO2 (CARBON DIOXIDE) 27 MMOL/L (24-34); CREATININE 0.83 MG/DL (0.70-1.30); FERRITIN 58 NG/ML (26-388); GFR AFRICAN AMERICAN 119 ML/MIN (>=60); GFR NON AFRICAN AMERICAN 103 ML/MIN (>=60); GLUCOSE, SERUM 88 MG/DL (60-99); IRON BINDING CAPACITY 285 MCG/DL (250-450); IRON, SERUM 22 MCG/DL (35-150); SODIUM, SERUM 138 MMOL/L (135-148)
[2017-03-13 05:40] LABS: BASOPHILS 0.6 %; BASOPHILS ABSOLUTE 0.04 10/3/uL (0.0-0.16); EOSINOPHILS 6.5 %; EOSINOPHILS ABSOLUTE 0.44 10/3/uL (0.0-0.53); HEMATOCRIT 29.9 % (40.0-51.0); HEMOGLOBIN 10.2 g/dL (13.6-17.8); IMMATURE GRANULOCYTES 0.3 %; IMMATURE GRANULOCYTES ABSOLUTE 0.02 10/3/uL (0.0-0.11); LYMPHOCYTES 34.7 %; LYMPHOCYTES ABSOLUTE 2.35 10/3/uL (0.67-4.30); MEAN CORPUS HGB CONC 34.1 g/dL (32.0-36.0); MEAN CORPUSCULAR HEMOGLOB 29.8 pg (26.0-34.0); MEAN CORPUSCULAR VOLUME 87.4 fL (80-100); MONOCYTES 7.5 %; MONOCYTES ABSOLUTE 0.51 10/3/uL (0.21-1.20); NEUTROPHILS 50.4 %; NEUTROPHILS ABSOLUTE 3.42 10/3/uL (2.02-8.40); PLATELET COUNT 282 10/3/uL (150-400); RBC DISTRIBUTION WIDTH 13.4 % (12.0-16.0); RED CELL COUNT 3.42 10/6/uL (4.7-6.1); WHITE BLOOD CELLS 6.8 10/3/uL (4.5-10.5)
[2017-03-13 05:42] LABS: MANUAL DIFF NO %
[2017-03-13 05:52] LABS: BUN (BLOOD UREA NITROGEN) 13 MG/DL (6-23); CALCIUM, SERUM 8.2 MG/DL (8.5-10.4); CHLORIDE, SERUM 108 MMOL/L (96-112); CO2 (CARBON DIOXIDE) 29 MMOL/L (24-34); CREATININE 0.73 MG/DL (0.70-1.30); GFR AFRICAN AMERICAN 125 ML/MIN (>=60); GFR NON AFRICAN AMERICAN 108 ML/MIN (>=60); GLUCOSE, SERUM 95 MG/DL (60-99); SODIUM, SERUM 142 MMOL/L (135-148)
[2017-03-17] MEDS ORDERED: WELLXL300 PO (08:39)
[2017-03-17] MEDS ORDERED: PRIN5 PO (08:39)
[2017-03-17] MEDS ORDERED: AUG875 PO (08:39)
[2017-03-17] MEDS ORDERED: PERCOCET 10/3251 TAB PO (08:40)
[2017-03-17] MEDS ORDERED: SEROQUEL1C PO (08:40)
[2017-03-31] MEDS ORDERED: DOLOPHINE10 MG PO (12:22)
== END 2017-03-17 10:53 | disposition home or self-care (01) | DRG 571 ==
LOC: 4SO 12:50
PROVIDERS: Internal Medicine; Nurse Practitioner Gerontology
DX: L02.414 Cutaneous abscess of left upper limb (principal); F11.288 Opioid dependence with other opioid-induced disorder; E11.22 Type 2 diabetes mellitus with diabetic chronic kidney disease; Z86.718 Personal history of other venous thrombosis and embolism; Z91.128 Patient's intentional underdosing of medication regimen for other reason; F17.210 Nicotine dependence, cigarettes, uncomplicated; G89.29 Other chronic pain; M54.9 Dorsalgia, unspecified; F31.9 Bipolar disorder, unspecified; D64.9 Anemia, unspecified; Z91.410 Personal history of adult physical and sexual abuse; I12.9 Hypertensive chronic kidney disease with stage 1 through stage 4 chronic kidney disease, or unspecified chronic kidney disease; N18.9 Chronic kidney disease, unspecified; L02.413 Cutaneous abscess of right upper limb; B96.20 Unspecified Escherichia coli [E. coli] as the cause of diseases classified elsewhere; B96.1 Klebsiella pneumoniae [K. pneumoniae] as the cause of diseases classified elsewhere; F39 Unspecified mood [affective] disorder; K59.09 Other constipation; B95.2 Enterococcus as the cause of diseases classified elsewhere
CPT/HCPCS: 71010; 73090-LT; 73130-LT; 80048; 82728; 83540; 83550; 85025; 87015; 87070; 87075; 87077; 87102; 87116; 87186; 87205; A9270-GY; C1713; C1751; J0295; J0360; J0690; J1170; J1580; J2250; J2270; J2370; J2405; J2543; J2795; J3010; J3370